=== PATIENT | female | born 1980 | race Caucasian/White ===

== ENCOUNTER 2018-09-09 19:02 | Emergency (ER) | payer BC ==
--- OUTSIDE RECORDS SUMMARY | 2018-09-09 20:00 | XMS REPORT | Continuity of Care Document ---
:1980 External Reference #:[id number] Author Name Covert, Michelle Care Team Providers Name Role Phone Gissel Lundberg MD Primary Care Physician Unavailable Payers Date Identification Numbers Payment Provider Subscriber Policy Number: [id number] [facility] Selin Alfredo PayID: [id number] [address] [address] [place] [address] Advance Directives Description No Information Available Problems Date Description Provider Status Onset: 07/21/2018 Pelvic varices Grayson Vasquez M.D. 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 Tobacco Use Start: Unknown Never Smoked Cigarettes Smoking Status Reviewed: 07/21/18 Never Smoked Cigarettes ETOH Use Occasionally consumes alcohol Tobacco Use Start: Unknown Patient has never smoked Recreational Drug Use Denies Drug Use Exercise Type/Frequency Exercises sporadically Allergies, Adverse Reactions, Alerts Date Description Reaction Status Severity Comments 03/31/2018 Sulfa Antibiotics hives Active Moderate Medications Medication Date Status Form Strength Qnty SIG Indications Ordering Provider Naratriptan Active Tablets 2.5mg 1 by mouth Unknown HCL 000 as needed migraine may repeat in 4 hours, max 2/day, max 2 days per week Advil Active Capsules 200mg as needed Unknown 000 Butalbital/Frankie Active Tablets 50-325-40mg take 1-2 Unknown taminophen/Caf 000 tablets by feine mouth every 6 hours if needed max 4/day Ondansetron Active Tablets 4mg one by Unknown HCL 000 mouth every 8 hours as needed for nausea Immunizations Description No Information Available Vital Signs Date Vital Result Comment 07/21/2018 7:13am Height 67 inches 5'7" Weight 150.00 lb Heart Rate 74 /min BP Systolic Sitting 116 mmHg BP Diastolic Sitting 76 mmHg Respiratory Rate 16 /min BMI (Body Mass Index) 23.5 kg/m2 03/31/2018 1:50pm Height 67 inches 5'7" Weight 148.00 lb Heart Rate 82 /min BP Systolic 122 mmHg BP Diastolic 76 mmHg Respiratory Rate 16 /min Body Temperature 99.2 F Pain Level 1 ache all over O2 % BldC Oximetry 98 % BMI (Body Mass Index) 23.2 kg/m2 Results Description No Information Available Procedures Description No Information Available Encounters Type Date Location Provider Dx Diagnosis Office Visit 07/21/2018 [facility] Grayson Vasquez, I86.2 Pelvic varices 7:30a [facility] Office Visit 03/31/2018 [facility] Lopez Shah MD A08.4 Viral intestinal 1:30p [facility] infection, unspecified I83.813 Varicose veins of bilateral lower extremities with pain R51 Headache G47.00 Insomnia, unspecified Plan of Treatment 07/21/2018 - Grayson Vasquez M.D.I86.2 Pelvic varicesComments:The following was discussed with Selin at the time of consultation:Objectively Selin has pathologic we dilated varicose veins in her pelvis. The MRV acquired June indicates that the enlargement refluxing left ovarian vein is the most likely culprit contributing to her pelvic varicosities.This correlates to her physical exam findings particularly the symptomatic vulvar varicosities as wellas the superficial varicose veins overlying her bilateral legs. Also noted on the MRV is compression but not occlusion of the left common iliac vein between the right common iliac artery and spine (May Thurner anatomy). This may be contributing to the patient's overall worsening symptoms in her leftleg relative to the right. 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 One particular symptom that is not quite consistent is the persistent pain and "crawling feeling" she experiences when lying flat. This may be attributable to compression of the left common iliacvein.Recommendations:Catheter directed pelvic venography with anticipated foam embolization of pelvic varicosities and coil embolization of the left ovarian vein.
[2018-09-09 20:07] VITALS: BP 133/84
[2018-09-09] MEDS ORDERED: Acetaminophen TAB* 325 MG PO ONE (20:15)
[2018-09-09 20:19] LABS: Influenza A Molecular POSITIVE (Negative)
--- NOTE | 2018-09-09 20:21 | UC ---
FLU HPI - HPI Summary HPI Summary: 38 y/o female presents to the urgent care c/o dry cough, fever, body aches, chills and fever for the past 2 days. Pt reports PMHX of Migraine HUBER, and today she woke up w/ HUEBR , fatigue, and Nausea. She took Advil 600mg PO around 1800pm today. Pain is 8/10. Pt denies N/V, abdominal pain, SOB, chest pain. She has decrease appetite, but has been drinking fluids, and urinating well. - History of Current Complaint Chief Complaint: UCRespiratory Stated Complaint: FLU SYMPTOMS Time Seen by Provider: 09/09/18 20:01 Hx Obtained From: Patient Hx Last Menstrual Period: 08/31/2018 ?: No Onset/Duration: Gradual Onset, Lasting Days - 2 days, Still Present, Worse Since - today Severity Currently: Mild Severity Initially: Moderate Pain Intensity: 6 - headache Pain Scale Used: 0-10 Numeric Associated Signs & Symptoms: Positive: Fever, T Max - 102.9F, Myalgia, Cough - dry, Nasal Congestion - clear, Headache Related Hx: Possible Flu/Infectious Exposure - Risk Factors Influenza Risk Factors: Negative - Allergy/Home Medications Allergies/Adverse Reactions: Allergies Allergy/AdvReac Type Severity Reaction Status Date / Time Sulfa (Sulfonamide Allergy Hives Verified 09/09/18 20:07 Antibiotics) Home Medications: Home Medications Ibuprofen 600 mg PO Q8HR PRN 09/09/18 [History Confirmed 09/09/18] Naratriptan HCl 1 mg PO DAILY PRN 09/09/18 [History Confirmed 09/09/18] PMH/Surg Hx/FS Hx/Imm Hx Previously Healthy: Yes Neurological History: Migraine Other Neurological History: Head consussion s/p fall 6 weeks ago - Surgical History Surgical History: Yes Surgery Procedure, Year, and Place: 3 C SECTIONS. RIGHT KNEE ARTHROSCOPY - Family History Known Family History: Positive: Cardiac Disease, Hypertension, Diabetes - Social History Occupation: Employed Full-time Lives: With Family Alcohol Use: Occasionally Substance Use Type: None Smoking Status (MU): Never Smoked Tobacco Review of Systems All Other Systems Reviewed And Are Negative: Yes Constitutional: Positive: Fever, Chills, Fatigue, Other - body aches Skin: Positive: Negative Eyes: Positive: Negative ENT: Positive: Nasal Discharge - clear, Sinus Congestion, Sinus Pain/Tenderness Respiratory: Positive: Cough - dry Cardiovascular: Positive: Negative Gastrointestinal: Positive: Nausea Genitourinary: Positive: Negative Motor: Positive: Negative Neurovascular: Positive: Negative Musculoskeletal: Positive: Myalgia Neurological: Positive: Headache Psychological: Positive: Negative Is Patient Immunocompromised?: No Physical Exam - Summary Physical Exam Summary: VITAL SIGNS: Reviewed. GENERAL: Patient is a well developed and nourished female who is sitting comfortable in the examining table. Patient is not in any acute respiratory distress. HEAD AND FACE: No signs of trauma. No ecchymosis, hematomas or skull depressions. No sinus tenderness. EYES: PERRLA, EOMI x 2, No injected conjunctiva, no nystagmus. No photophobia. EARS: Hearing grossly intact. Ear canals and tympanic membranes are within normal limits. Nose: edematous and erythematous nasal mucosa w/ clear nasal discharge. MOUTH: Positive no erythema, no tonsillar enlargement. Uvula in midline. NECK: Supple, trachea is midline, Positive anterior cervical lymphadenopathy, no JVD, no carotid bruit, no c-spine tenderness, neck with full ROM. No meningeal signs, no Kernig's or brudzinskis signs. CHEST: Symmetric, no tenderness at palpation LUNGS: Clear to auscultation bilaterally. No wheezing or crackles. CVS: Regular rate and rhythm, S1 and S2 present, no murmurs or gallops appreciated. ABDOMEN: Soft, non-tender. No signs of distention. No rebound no guarding, and no masses palpated. Bowel sounds are normal. EXTREMITIES: FROM in all major joints, no edema, no cyanosis or clubbing. NEURO: Alert and oriented x 3. No acute neurological deficits. Speech is normal and follows commands. SKIN: Dry and warm Triage Information Reviewed: Yes Vital Signs: Initial Vital Signs Temp 100.2 F 09/09/18 20:00 Pulse 102 09/09/18 20:00 Resp 18 09/09/18 20:00 BP 133/84 09/09/18 20:00 Pulse Ox 98 09/09/18 20:00 Flu Course/Dx - Course Course Of Treatment: 38 y/o female presents to the urgent care c/o dry cough, fever, body aches, chills and fever for the past 2 days. Pt reports PMHX of Migraine HUBER, and today she woke up w/ HUBER , fatigue, and Nausea. She took Advil 600mg PO around 1800pm today. Pain is 8/10. Pt denies N/V, abdominal pain, SOB, chest pain. She has decrease appetite, but has been drinking fluids, and urinating well. Hx obtained. Pt with Viral syndrome on examination. Pt hemodynamically stable, Temp : 100.2F HR:102 bpm and feels w/ nausea now. Pt w/ PMHX of Migraine HUBER. Last dose of advil 600mg PO taken was 2hrs ago. Pt given at the clinic Tylenol PO and Zofran PO by the nurse to alleviate symptoms. Influenza A&B ordered: result : Influenza A positive. Pt given first dose of Tamiflu at the clinic since pharmacy is closed now. Pt tolerated well medication and felt better. Pt Rx Tamiflu, Zofran PO and ibuprofen PO to alleviates symptoms. Advised on hand washing and wear a mask to avoid spreading. Pt advised to rest, increase fluid intake, eat well and avoid strenuous exercise. If symptoms do not improve or worsen advised to return to the urgent care or f/u with her PCP for further evaluation and treatment. D/C instructions explained. Pt understood and agreed w / plan of care. - Differential Dx/Diagnosis Differential Diagnosis/HQI/PQRI: Bronchitis, Influenza, Pneumonia, Upper Respiratory Infection Provider Diagnosis: Influenza A, Fever Discharge - Sign-Out/Discharge Documenting (check all that apply): Patient Departure - d/C home All imaging exams completed and their final reports reviewed: No Studies - Discharge Plan Condition: Stable Disposition: HOME Prescriptions: Oseltamivir CAP* [Tamiflu CAP*] 75 mg PO BID #9 cap Patient Education Materials: Influenza (ED) Forms: *Work Release Referrals: Gissel Gregg MD [Primary Care Provider] - 2 Days Additional Instructions: 1- Please take the full course of the antiviral to avoid resistance. Encourage hand washing and wear a mask to avoid spreading. 2-Please continue taking Ibuprofen alternating w/ ibuprofen PO q6-8hrs prn as instructed after meals to alleviate fever, HUBER and sore throat. Increase fluid intake, eat well, rest and avoid strenuous exercise 3-If symptoms do not improve or worsen please return to the urgent care or f/u with your PCP in 2 days for further evaluation and treatment. 4- If symptoms worsen and you cant control temp and you develop vomiting and severe HUBER please go immediately to the ER for further management - Billing Disposition and Condition Condition: STABLE Disposition: Home
[2018-09-09] MEDS ORDERED: Ondansetron ODT TAB* 4 MG PO ONE (20:47)
[2018-09-09] MEDS ORDERED: Oseltamivir CAP* 75 MG CAP PO ONE (20:47)
== END 2018-09-09 21:45 | disposition home or self-care (01) ==
LOC: UCEAST 19:02
DX: J10.1 Influenza due to other identified influenza virus with other respiratory manifestations (principal); R50.9 Fever, unspecified; Z88.2 Allergy status to sulfonamides
CPT/HCPCS: 99202; A9270-GY; G0463

== ENCOUNTER → 2018-11-19 08:55 | Day surgery (SDC) | payer BC ==
[~2018-11-19 08:55] MED LIST: Heparin 2 UNITS/ML IVPREMIX* 2,000 UNIT/1,000 ML BAG IV ONE; Iohexol 350 (CONTRAST) 200 ML MDV IV ONE; LORazepam TAB(*) 1 MG ONE; Lidocaine 1% INJ* 10 MG/ML 30 ML SDV ONE; Midazolam* 1 MG/ML 5 ML VIAL (5 MG) ONE; Naloxone* 0.4 MG/ML 1 ML VIAL ONE; Polidocanol 1% 20 MG/2 ML AMP IV ONE; fentaNYL* 50 MCG/ML 2 ML VIAL (100 MCG VIAL) ONE
[2018-11-19 16:07] VITALS: BP 126/75
--- NOTE | 2018-11-19 16:14 | PN ---
Progress Note - Progress Note Date of Service: 11/19/18 SOAP: Subjective: No pain at right IJ venotomy site. Denies abdomen or pelvic pain. Denies SOB. Objective: Selected Entries 11/19/18 11/19/18 11/19/18 15:39 15:56 16:00 Heart Rate 87 Respiratory 15 Rate Blood Pressure 126/75 (mmHg) Blood Pressure 94 Mean O2 Sat by Pulse 99 Oximetry Sitting up in bed eating lunch. NAD, AAO x 3 RIJV is soft, NT Dressing is CDI No tenderness elicited with palpation of low abdomen and pelvis Assessment: 38 YOF s/p pelvic venography, foam sclerosant embolization of pelvic varicosities and coil embolization of bilateral ovarian veins. Plan: 1. D/C to home. 2. OTC NSAID for any post procedural pain. 3. IR clinic nurse will call patient 11/22/18 for check up. 4. Routine clinic follow up in 1 month.
== END | disposition home or self-care (01) ==
LOC: CHICATH 08:55
PROVIDERS: ATTEND Radiology Diagnostic Radiology
DX: I86.2 Pelvic varices (principal); N94.89 Other specified conditions associated with female genital organs and menstrual cycle; I83.93 Asymptomatic varicose veins of bilateral lower extremities
CPT/HCPCS: 36415; 37241; 76937; 84702; 99156; 99157; A9270-GY; C1769; C1884; C1887; C1894; J1644; J2250; J2310; J3010